=== PATIENT | male | born 1950 | race Caucasian/White ===

== ENCOUNTER 2018-05-05 08:43 | Emergency (ER) | payer MEDICARE, BC ==
[2018-05-05 08:52] VITALS: BP 149/99
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
--- NOTE | 2018-05-05 10:01 | RAD ---
INDICATION: Right knee injury. TECHNIQUE: 4 views of the right knee were obtained. FINDINGS: The bones are in normal alignment. No joint effusion or fracture is seen. Joint spaces appear maintained. IMPRESSION: NO EVIDENCE FOR FRACTURE.
== END 2018-05-05 10:10 | disposition home or self-care (01) ==
LOC: UCEAST 08:43
DX: S70.11XA Contusion of right thigh, initial encounter (principal); W22.8XXA Striking against or struck by other objects, initial encounter; Y93.89 Activity, other specified; Y92.89 Other specified places as the place of occurrence of the external cause
CPT/HCPCS: 99212; G0463